=== PATIENT | male | born 1975 ===

== ENCOUNTER 2019-02-09 07:37 | Outpatient (CLI) | payer OTHER ==
[~2019-02-09] VITALS: Ht 152.4 cm; Wt 111.1 kg
== END 2019-02-09 08:00 | disposition home or self-care (01) ==
LOC: OFIC 805 07:37
DX: H71.21 Cholesteatoma of mastoid, right ear (principal); H70.12 Chronic mastoiditis, left ear; H61.23 Impacted cerumen, bilateral; J31.0 Chronic rhinitis

== ENCOUNTER 2019-02-23 07:35 | Outpatient (CLI) | payer OTHER ==
[~2019-02-23] VITALS: Ht 152.4 cm; Wt 111.1 kg
== END 2019-02-23 07:45 | disposition home or self-care (01) ==
LOC: OFIC 805 07:35
DX: H70.12 Chronic mastoiditis, left ear (principal); J31.0 Chronic rhinitis